=== PATIENT | female | born 1945 | race Caucasian/White ===

== ENCOUNTER → 2017-01-27 | Outpatient (CLI) | payer OTHER ==
[2017-01-27 13:47] LABS: ALBUMIN 3.1 gm/dl (3.1-4.5); CREATININE 1.1 mg/dL (0.55-1.02); POTASSIUM 3.3 mmol/L (3.5-5.1); TOTAL PROTEIN 7.7 gm/dL (6.4-8.2)
[2017-01-27 13:56] LABS: THYROID STIM HORMONE (HS) 1.62 uIU/ml (0.358-4.75)
== END | disposition home or self-care (01) ==
LOC: LAB 12:40
PROVIDERS: Internal Medicine
DX: E11.9 Type 2 diabetes mellitus without complications (principal); I25.10 Atherosclerotic heart disease of native coronary artery without angina pectoris; E78.00 Pure hypercholesterolemia, unspecified; E55.9 Vitamin D deficiency, unspecified

== ENCOUNTER → 2017-02-07 | Outpatient (CLI) | payer OTHER | END | disposition home or self-care (01) | LOC: US 12:56 | DX: N61.1 Abscess of the breast and nipple (principal) ==

== ENCOUNTER → 2017-03-10 | Outpatient (CLI) | payer OTHER ==
[2017-03-10 12:58] LABS: ALBUMIN 3.5 gm/dl (3.1-4.5); CREATININE 3.56 mg/dL (0.55-1.02); PHOSPHOROUS 6.7 mg/dL (2.5-4.9); POTASSIUM 4.5 mmol/L (3.5-5.1)
== END | disposition home or self-care (01) ==
LOC: LAB 11:57
PROVIDERS: Internal Medicine Nephrology
DX: N18.5 Chronic kidney disease, stage 5 (principal)

== ENCOUNTER → 2017-12-23 | Outpatient (CLI) | payer OTHER ==
[2017-12-23 12:13] LABS: BASO % 0.6 % (0.0-1.0); EOS # 0.2 10*3/uL (0.0-0.4); EOS % 2.9 % (1.0-4.0); HEMATOCRIT 31.8 % (37.0-47.0); HEMOGLOBIN 10.5 g/dl (12.0-16.0); LYMPH # 1.2 10*3/uL (1.3-4.4); LYMPH % 23.2 % (27.0-41.0); MEAN CELL VOLUME 91.6 fl (81.0-99.0); MEAN CORPUSCULAR HGB 30.3 pg (27.0-31.0); MEAN PLATELET VOLUME 10.1 fl (9.6-12.3); MONO # 0.4 10*3/uL (0.1-1.0); MONO % 7.8 % (3.0-9.0); NEUT # 3.3 10*3/uL (2.3-7.9); NEUT % 65.3 % (47.0-73.0); PLATELET COUNT AUTOMATED 186 10*3/uL (130-400); RED BLOOD COUNT 3.47 10*6/uL (4.10-5.10); RED CELL DISTRI WIDTH 14.8 % (0-14.5); WHITE BLOOD COUNT 5.1 10*3/uL (4.8-10.8)
[2017-12-23 12:42] LABS: ALBUMIN 3.7 gm/dl (3.1-4.5); CREATININE 3.77 mg/dL (0.55-1.02); PHOSPHOROUS 4.5 mg/dL (2.5-4.9); POTASSIUM 4.8 mmol/L (3.5-5.1)
[2017-12-23 12:46] LABS: COLOR YELLOW (YELLOW)
[2017-12-23 12:47] LABS: BACTERIA 3+; BILIRUBIN NEGATIVE (NEGATIVE); BLOOD NEGATIVE (NEGATIVE); CLARITY CLOUDY (CLEAR); EPITHELIAL CELLS 30-40; GLUCOSE NEGATIVE (NEGATIVE); KETONE NEGATIVE (NEGATIVE); LEUKO ESTERASE 2+ (NEGATIVE); NITRITE NEGATIVE (NEGATIVE); UROBILINOGEN 0.2 E.U./dl (0.2-1.0); WBC TNTC wbc/hpf (0-5)
[2017-12-23 13:50] LABS: FERRITIN 740.3 ng/mL (10.0-291.0); VITAMIN D, 25-HYDROXY 30.4 ng/mL (30-100)
[2017-12-23 13:51] LABS: PTH INTACT 495.7 pg/mL (18.5-88.0)
== END | disposition home or self-care (01) ==
LOC: LAB 11:25
PROVIDERS: Internal Medicine Nephrology
DX: N18.4 Chronic kidney disease, stage 4 (severe) (principal)

== ENCOUNTER → 2018-08-04 | Outpatient (CLI) | payer OTHER ==
[~2018-08-04] MED LIST: APRESOLINE10 MG PO; BIOTIN1000 MC1 PO; CALPHRON667 MG PO; CLARITIN10 MG PO; COREG3.125 MG PO; FUROSEMIDE80 MG PO; IRON325 M1 PO; OMNICEF300 MG PO; PRAVACHOL40 MG PO; PROTONIX40 MG PO; SODIUM BICARBO650 MG PO; TYLENOL325 M1 PO; VITAMIN D50000 UNIT PO; WARFARIN SOD5 MG PO; ZESTORETIC 20-1 EACH PO
[2018-08-04 11:35] LABS: BASO % 0.6 % (0.0-1.0); BILIRUBIN NEGATIVE (NEGATIVE); BLOOD NEGATIVE (NEGATIVE); CLARITY SL CLOUDY (CLEAR); COLOR YELLOW (YELLOW); EOS # 0.3 10*3/uL (0.0-0.4); EOS % 4.8 % (1.0-4.0); GLUCOSE NEGATIVE (NEGATIVE); HEMATOCRIT 25.3 % (37.0-47.0); HEMOGLOBIN 7.9 g/dl (12.0-16.0); KETONE NEGATIVE (NEGATIVE); LEUKO ESTERASE TRACE (NEGATIVE); LYMPH # 1.3 10*3/uL (1.3-4.4); LYMPH % 24.6 % (27.0-41.0); MEAN CORPUSCULAR HGB 31.2 pg (27.0-31.0); MEAN CORPUSCULAR HGB CONC 31.2 g/dl (33.0-37.0); MEAN PLATELET VOLUME 9.9 fl (9.6-12.3); MONO # 0.4 10*3/uL (0.1-1.0); MONO % 7.8 % (3.0-9.0); NEUT # 3.2 10*3/uL (2.3-7.9); NEUT % 61.8 % (47.0-73.0); NITRITE NEGATIVE (NEGATIVE); PLATELET COUNT AUTOMATED 226 10*3/uL (130-400); RED BLOOD COUNT 2.53 10*6/uL (4.10-5.10); RED CELL DISTRI WIDTH 13.9 % (0-14.5); UROBILINOGEN 0.2 E.U./dl (0.2-1.0); WHITE BLOOD COUNT 5.2 10*3/uL (4.8-10.8)
[2018-08-04 11:45] LABS: URINE CREATININE RANDOM 48.3 mg/dL
[2018-08-04 11:50] LABS: BACTERIA TRACE; EPITHELIAL CELLS 21-30; YEAST TRACE
[2018-08-04 11:53] LABS: ALBUMIN 3.8 gm/dl (3.1-4.5); CREATININE 4.23 mg/dL (0.55-1.02); PHOSPHOROUS 5.5 mg/dL (2.5-4.9); POTASSIUM 3.9 mmol/L (3.5-5.1)
[2018-08-04 12:53] LABS: FERRITIN 315.6 ng/mL (10.0-291.0); PTH INTACT 626.5 pg/mL (18.5-88.0)
== END | disposition home or self-care (01) ==
LOC: LAB 10:42
PROVIDERS: Internal Medicine Nephrology
DX: E11.22 Type 2 diabetes mellitus with diabetic chronic kidney disease (principal); N18.5 Chronic kidney disease, stage 5; D63.1 Anemia in chronic kidney disease; N25.81 Secondary hyperparathyroidism of renal origin; Z79.899 Other long term (current) drug therapy

== ENCOUNTER 2018-10-02 17:44 | Inpatient (IN) | payer OTHER ==
[~2018-10-02] VITALS: Ht 157.4 cm; Wt 80.7 kg
--- NOTE | ~2018-10-02 | PR ---
[place], [place] PROGRESS NOTE NAME: MARIELOS ESCALANTE UNIT #: [id number] ROOM: 404 DOCTOR: DAYNA MATHEWSMARIA ESTHER Maddox BIRTHDATE: [birth year] DOS: NEPHROLOGY FOLLOWUP NOTE SUBJECTIVE: The patient was seen and examined. She is awake, alert, and lying flat. She denies shortness of breath, nausea or vomiting. She continues to have pain in her legs. PHYSICAL EXAMINATION: VITAL SIGNS: Temperature 98.2, pulse 101, respiratory rate 18, blood pressure 113/56. HEENT: Shows no JVD. LUNGS: Fairly clear. HEART: S1, S2. No rub. ABDOMEN: Soft, nontender. EXTREMITIES: Had no edema. LABORATORY DATA: Hemoglobin 8.0, white count of 6.3, platelets 242. Sodium 134, potassium 4.8, CO2 of 16, BUN 156, creatinine 5.9, glucose 87, phosphorus 7.9, calcium 8.4, magnesium 1.3. ASSESSMENT AND PLAN: 1. Stage 5 chronic kidney disease with acute on chronic kidney disease. The patient has some improvement in her renal function, although marginal improvement in her GFR. She is receiving some gentle hydration and has had some improvement; however, I am still recommending dialysis. The patient will be seen by Dr. Maher tomorrow for she wanted to discuss with him prior to starting any dialysis plans, but does appear to be agreeable. She most likely will require tunneled dialysis catheter in the next 1-2 days by Interventional Radiology. Dialysis can be given while in the hospital. Most of her electrolyte abnormalities will be better controlled and improved with renal replacement therapy. She surprisingly is well compensated. 2. Anemia of chronic disease. Stable H and H. She will require erythropoietin stimulating agents. Would check iron studies. Most likely, she will need IV iron. 3. Lower extremity pain. The etiology is not clear. Continue supportive care. 4. Hyperphosphatemia. Phosphorus binders with meals. We will check an intact PTH level. 5. Metabolic acidosis. This is stable. We will correct with dialysis. 6. Hypomagnesemia, replace her magnesium. Start daily oral magnesium supplements for now. [place], [place] PROGRESS NOTE NAME: MARIELOS ESCALANTE UNIT #: [id number] ROOM: 404 DOCTOR: MARIA ESTHER MCINTOSH MD BIRTHDATE: [birth year] MARIA ESTHER MCINTOSH MD CM:PNTRANS [id number] MARIA ESTHER MCINTOSH MD 10/04/18 [id number] interface
--- NOTE | ~2018-10-02 | CON ---
[place], [place] REPORT OF CONSULTATION NAME: MARIELOS ESCALANTE [facility] #: [id number] UNIT #: [id number] ROOM: 404 DOCTOR: MARIA ESTHER MCINTOSH MD BIRTHDATE: [birth year] DOS: 10/03/2018 NEPHROLOGY CONSULTATION REASON FOR CONSULTATION: Acute on chronic kidney disease/patient known to you. HISTORY OF PRESENT ILLNESS: This is a 73-year-old female. She is well known to my partner, Dr. Maher. She has known chronic kidney disease. The details are not clear, but it seems she had been on dialysis in the past for what sounds like almost a year. Apparently, she was somewhat noncompliant and dialysis eventually was stopped since she had a stable creatinine and a GFR around 15. She is being followed very closely by Dr. Maher. Most recent creatinine from few months ago was noted to be 4.2. However, she did have a very high BUN. She has not had any overt uremic symptoms and has been surprisingly well compensated. It seems she came to the hospital due to cramping in her lower extremities. She had routine labs done and showed her labs to be worse from baseline. She was started on some gentle hydration it seems. The patient has not had nausea, vomiting or weight loss. She denied fevers or chills. Her initial BUN was 176 with a creatinine of 7.4. She also had a fairly significant metabolic acidosis, CO2 of 14. Creatinine today showed slight improvement 7.1 with BUN still high at 182. The patient tells me she urinates "normal." Her hemoglobin noted today was to be 8.6. ALLERGIES: Listed IBUPROFEN. MEDICATIONS: Reviewed in the chart. PAST MEDICAL HISTORY: 1. Stage V chronic kidney disease with a history of dialysis dependence in the past. Apparently, the patient has been considering home options. 2. Hypertension. 3. Anemia. 4. Secondary hyperparathyroidism. 5. Diabetes mellitus. 6. Hyperlipidemia. 7. AV fistula creation. 8. Cholecystectomy. 9. Hysterectomy. FAMILY HISTORY: There is no reported history of chronic kidney disease, otherwise noncontributory. SOCIAL HISTORY: She has a previous history of tobacco abuse. No history of alcohol or illicit drugs. REVIEW OF SYSTEMS: As per HPI, otherwise a 10-point review of systems was reviewed and was negative. PHYSICAL EXAMINATION: VITAL SIGNS: Temperature afebrile, pulse 68, respiratory rate 20, blood [place], [place] REPORT OF CONSULTATION NAME: MARIELOS ESCALANTE UNIT #: [id number] ROOM: 404 DOCTOR: MARIA ESTHER MCINTOSH MD BIRTHDATE: [birth year] pressure 148/47. GENERAL: She is awake, alert, comfortable, in no acute distress. HEENT: Shows no JVD. Sclerae are anicteric. Mucous membranes somewhat dry. Pharynx is clear. NECK: Supple. Trachea midline. No neck lymphadenopathy or thyromegaly. LUNGS: Fairly clear. No crackles, wheezing, or rales. No tactile fremitus. She is not using accessory muscles of respiration. HEART: S1, S2. No rub. No thrill or gallop. ABDOMEN: Soft, nontender. There is no organomegaly or rigidity, rebound or guarding. There is no CVA tenderness. EXTREMITIES: With trace edema. There is no lower extremity lymphadenopathy. Distal pulses are present. SKIN: Showed overt rash. There was no petechia or purpura. Skin temperature is warm. NEUROLOGIC: She was awake. She was alert. She was following commands. Cranial nerves are intact. LABORATORY DATA: Hemoglobin 8.6, white count 7.9, platelets 253. Sodium 130, potassium 4.8, CO2 of 15, BUN 182, creatinine 7.1, glucose 97, phosphorus 9.7, calcium 8.1. ASSESSMENT AND PLAN: 1. Stage V chronic kidney disease with acute on chronic renal failure. The patient appears to have progression of her CKD and does not have any overt uremic symptoms. She previously had required dialysis. 2. Anemia of chronic disease. 3. Lower extremity pain with an unclear etiology. 4. Hyperphosphatemia. 5. Mild hyponatremia. 6. Metabolic acidosis. 7. Elevated liver function tests. PLAN: 1. Gentle hydration for now. 2. Replace electrolytes as needed. 3. The patient to need dialysis. I explained to her that it is not safe to be discharged with her current kidney function and I am recommending her to start hemodialysis. She apparently has desire to do home dialysis with PD. I stated that this certainly will be an option for her. She will require training and have to see a surgeon as an outpatient for PD catheter placement. I explained to her, I am recommending inpatient hemodialysis to transition to outpatient hemodialysis first to stabilize her situation and then plans with moving forward with PD can be obtained. 4. Can start a phosphorus binder. Would start Renvela with meals. 5. Her acidosis and electrolyte abnormalities will be controlled with hemodialysis. 6. Would dose meds for ESRD. 7. Would recommend placing a tunneled dialysis catheter on Friday by Interventional Radiology. The patient stated to me she would like to wait to talk to Dr. Maher on Friday prior to starting any dialysis plans. I did state to [place], [place] REPORT OF CONSULTATION NAME: MARIELOS ESCALANTE UNIT #: [id number] ROOM: 404 DOCTOR: DAYNA MATHEWS,MARIA ESTHER Maddox BIRTHDATE: [birth year] her that this would be acceptable since she does appear to be well compensated with surprisingly no overt uremic symptoms. 8. For her anemia, She will require erythropoietin stimulating agents. We will check iron studies and can begin IV iron if indicated. Thank you for this consultation. We will follow with you. MARIA ESTHER MCINTOSH MD CM:CONSTR:REPORT OF CONSULTATION 1428 10/04/18 0129 interface
[2018-10-02 17:45] VITALS: BP 138/87
[2018-10-02 18:23] LABS: BASO % 0.4 % (0.0-1.0); EOS # 0.2 10*3/uL (0.0-0.4); EOS % 2.6 % (1.0-4.0); HEMATOCRIT 26.2 % (37.0-47.0); HEMOGLOBIN 8.6 g/dl (12.0-16.0); LYMPH # 0.8 10*3/uL (1.3-4.4); MEAN CELL VOLUME 94.6 fl (81.0-99.0); MEAN CORPUSCULAR HGB CONC 32.8 g/dl (33.0-37.0); MEAN PLATELET VOLUME 10.3 fl (9.6-12.3); MONO # 0.5 10*3/uL (0.1-1.0); MONO % 6.9 % (3.0-9.0); NEUT % 78.6 % (47.0-73.0); PLATELET COUNT AUTOMATED 262 10*3/uL (130-400); RED BLOOD COUNT 2.77 10*6/uL (4.10-5.10); RED CELL DISTRI WIDTH 13.6 % (0-14.5); WHITE BLOOD COUNT 7.7 10*3/uL (4.8-10.8)
[2018-10-02 18:40] LABS: ALBUMIN 3.4 gm/dl (3.1-4.5); CREATININE 7.43 mg/dL (0.55-1.02); POTASSIUM 5.1 mmol/L (3.5-5.1); TOTAL PROTEIN 7.1 gm/dL (6.4-8.2)
--- NOTE | 2018-10-02 19:05 | NUR ---
NURSE TO NURSE REPORT GIVEN TO THIS RN.PT AWAITING ADMISSION.
--- NOTE | 2018-10-02 20:22 | NUR ---
MULTIPLE ATTEMPTS MADE BY THIS RN AND 2 OTHER RN'S FOR IV ACCESS.UNSUCCESSFUL AT THIS TIME.DR SALGADO IS AWARE.
--- NOTE | 2018-10-02 20:33 | NUR ---
PT HAS OLD FISTULA IN LEFT ARM THAT IS NO OPERATIONAL.DR COOK AND DR SALGADO AT BEDSIDE TO EVALUATE IV ACCESS FOR PT, PER BOTH MD VERBAL ORDER, IV ACCESS OBTAINED IN PT LEFT FOREARM WITH 22GAUGE ANGIOCATH BY THIS RN.IV HAS GOOD BLOOD RETURN AND FLUSHES WELL.
--- NOTE | 2018-10-02 20:40 | NUR ---
PT MEDICATED PER EMAR WITH NUBAIN IM LEFT UPPER THIGH.
[2018-10-02 20:53] VITALS: BP 137/50
--- NOTE | 2018-10-02 21:06 | NUR ---
PT RESTING IN BED WITH LIGHTS DIMMED FOR COMFORT.CALL ZAMAN IS WITHIN REACH.PT DENIES ANY NEEDS AT THIS TIME.
--- NOTE | 2018-10-02 22:15 | NUR ---
PT ASSISTED ON AND OFF BEDSIDE TOILET.
--- NOTE | 2018-10-02 22:30 | NUR ---
PT MEDICATED PER EMAR WITH HEPARIN.INFUSION OF NS INITIATED @ 125ML/HR.PHOTO TAKEN OF SCAB ON RIGHT BREAST, PT STATES WAS AND OLD ABSCESS.
--- NOTE | 2018-10-02 22:43 | NUR ---
PT REPOSITIONED IN BED.SECOND PHOTO TAKEN OF SCAB ON 3RD DIGIT OF LT HAND.
[2018-10-03] VITALS (8 sets, daily range): BP systolic 117–155; BP diastolic 43–78
--- NOTE | 2018-10-03 01:28 | NUR ---
PT C/O RT LEG PAIN AND UNABLE TO GET COMFORTABLE.PAIN 5/10.
--- NOTE | 2018-10-03 01:35 | NUR ---
PT MEDICATED WITH NORCO TABLET PER EMAR.[facility] CONTACTED FOR HOSPITAL BED.
--- NOTE | 2018-10-03 03:54 | NUR ---
PT C/O NAUSEA AND STATES SHE IS UNABLE TO SLEEP.
--- NOTE | 2018-10-03 03:58 | NUR ---
PT BLOOD GLUCOSE AT BEDSIDE 51.
--- NOTE | 2018-10-03 04:03 | NUR ---
THIS RN SPOKE WITH DR SALGADO, PER VERBAL ORDER FROM DR SALGADO, INFUSION OF D10W INITIATED @ 40ML/HR. AND PT MEDICATED WITH 4MG ZOFRAN IVP.
--- NOTE | 2018-10-03 04:54 | NUR ---
BEDSIDE GLUCOSE 82.PT REPORTS NAUSEA HAS SUBSIDED.PT ASSISTED ON AND OFF BEDSIDE TOILET.
--- NOTE | 2018-10-03 05:55 | NUR ---
PT REPORTS CONTINUED RIGHT LEG PAIN, REQUEST PAIN MEDICATION.
--- NOTE | 2018-10-03 06:14 | NUR ---
PT RESTING IN BED WITH EYES CLOSED.
--- NOTE | 2018-10-03 06:41 | NUR ---
PT NOW AWAKE AND REQUESTIN GPAIN MEDICATION FOR HER LEG.PT MEDICATED PER EMAR WITH PRN MORPHINE 2MG.
--- NOTE | 2018-10-03 06:48 | NUR ---
PT REFUSED MEDICATION OF PROTONIX.
--- NOTE | 2018-10-03 07:25 | NUR ---
REPORT RECEIVED AT 0710 FROM RENETTA LIRA. THIS PT IS AWAKE AND ALERT. SHE HAS BEEN GIVEN A BREAKFAST TRAY AT THIS TIME. SHE IS SITTING UP NOW,EATING. IV DEXTROSE 10% IS INFUSING NOW. HER COLOR IS FAIR,SKIN W/D. RESPIRATIONS ARE NON-LABORED. PT WILL BE ADMITTED,WAITING FOR INPT BED ASSIGNMENT. PT IS AWARE OF THIS. ALVIN LIRA
[2018-10-03 08:31] LABS: BASO % 0.1 % (0.0-1.0); EOS # 0.1 10*3/uL (0.0-0.4); EOS % 1.4 % (1.0-4.0); HEMATOCRIT 26.5 % (37.0-47.0); HEMOGLOBIN 8.6 g/dl (12.0-16.0); LYMPH # 0.7 10*3/uL (1.3-4.4); LYMPH % 8.9 % (27.0-41.0); MEAN CORPUSCULAR HGB 30.8 pg (27.0-31.0); MEAN CORPUSCULAR HGB CONC 32.5 g/dl (33.0-37.0); MEAN PLATELET VOLUME 10.2 fl (9.6-12.3); MONO # 0.6 10*3/uL (0.1-1.0); MONO % 6.9 % (3.0-9.0); NEUT # 6.5 10*3/uL (2.3-7.9); NEUT % 81.9 % (47.0-73.0); PLATELET COUNT AUTOMATED 253 10*3/uL (130-400); RED BLOOD COUNT 2.79 10*6/uL (4.10-5.10); RED CELL DISTRI WIDTH 13.6 % (0-14.5); WHITE BLOOD COUNT 7.9 10*3/uL (4.8-10.8)
[2018-10-03 09:03] LABS: INTERNATIONAL NORM RATIO 3.6 (2.0-3.5)
[2018-10-03 09:20] LABS: ALBUMIN 3.3 gm/dl (3.1-4.5); CREATININE 7.09 mg/dL (0.55-1.02); POTASSIUM 4.8 mmol/L (3.5-5.1); TOTAL PROTEIN 7.1 gm/dL (6.4-8.2)
[2018-10-03 09:26] LABS: THYROID STIM HORMONE (HS) 1.72 uIU/ml (0.358-4.75)
[2018-10-03 09:28] LABS: PHOSPHOROUS 9.7 mg/dL (2.5-4.9)
[2018-10-03 09:29] LABS: VITAMIN D, 25-HYDROXY 24.2 ng/mL (30-100)
--- NOTE | 2018-10-03 09:34 | NUR ---
DR MCINTOSH AND DR MADERA HAVE BOTH BEEN NOTIFIED OF CRITICAL HIGH PHOSPHORUS LEVEL. ALVIN LIRA
--- NOTE | 2018-10-03 13:05 | NUR ---
A 73, admitted to , under the services of АННА Patel DO with a diagnosis of ACUTE RENAL FAILURE. Chief complaint is RIGHT LEG PAIN. Patient arrived via bed from ER. Monitor applied. Initial assessment completed. Vital signs taken and recorded. АННА PATLE DO notified of admission to the unit. Orders received. See assessment for past medical history, medications and allergies. Patient and/or family oriented to unit. [facility]. Clothing/patient valuable form completed. BATSHEVA HURTADO
[2018-10-03] MEDS ORDERED: IRON325 M1 PO (13:19)
--- NOTE | 2018-10-03 13:20 | NUR ---
Pt has an area to rt breast were she states she had an "abscess" that ruptured at home days ago. States that a lot of drainage came out at that time. Area is currently flat and scabbed, no redness warmth or drainage noted at this time. See wound care for measurements.
--- NOTE | 2018-10-03 13:35 | NUR ---
DR. Herrera was in and examined pt.
[2018-10-03] MEDS ORDERED: APRESOLINE10 MG PO (13:37)
[2018-10-03] MEDS ORDERED: FUROSEMIDE80 MG PO (13:38)
[2018-10-03] MEDS ORDERED: ZESTORETIC 20-1 EACH PO (13:38)
[2018-10-03] MEDS ORDERED: WARFARIN SOD5 MG PO (13:38)
[2018-10-03] MEDS ORDERED: PRAVACHOL40 MG PO (13:39)
[2018-10-03] MEDS ORDERED: COREG3.125 MG PO (13:39)
[2018-10-03] MEDS ORDERED: PROTONIX40 MG PO (13:39)
[2018-10-03] MEDS ORDERED: CALPHRON667 MG PO (13:40)
--- NOTE | 2018-10-03 14:19 | NUR ---
Medicated with zofran iv per prn order for complaints of nausea. Pt states she had a small emesis.
--- NOTE | 2018-10-03 20:37 | NUR ---
NORCO 5-325 MG TABLET PULLED FROM [facility] FOR PT D/T COMPLAINTS OF PAIN. UPON OPENING PILL FROM WRAPPING, PT REFUSES MEDICATION-STATING THAT THE MEDICATION WILL MAKE HER SICK AND NAUSEOUS. PT OFFERED ZOFRAN BUT REFUSED TO TRY THE NORCO MEDICATION. MEDICATION WASTED WITH ANOTHER RN IN [facility]. PT REQUESTS MORPHINE BECAUSE SHE STATES THAT IT MANAGES HER PAIN BETTER. WILL PULL MEDICATION AND MEDICATE PT ACCORDING TO ORDERS ON EMAR. PT AWARE.
--- NOTE | 2018-10-03 20:50 | NUR ---
PT GIVEN MORPHINE AND ZOFRAN AT THIS TIME FOR COMPLAINTS OF RLE PAIN AND NAUSEA. WILL MONITOR FOR EFFECTIVENESS. PT STATES THAT SHE CANNOT TAKE ANY MORE PO MEDICATION AT THIS TIME. ALL VITALS WNL. ASSESSMENT COMPLETE REVEALING NO NEW ABNORMALITIES. RESPIRATIONS EASY AND UNLABORED ON ROOM AIR. WILL CONTINUE TO MONITOR. ALL SAFETY MEASURES IN PLACE, CALL LIGHT IN REACH.
--- NOTE | 2018-10-03 21:50 | NUR ---
MORPHINE AND ZOFRAN EFFECTIVE AT THIS TIME.
--- NOTE | 2018-10-03 22:30 | NUR ---
PT CONTINUES TO COMPLAIN OF PAIN TO RLE. DR COWAN NOTIFIES AND GIVES NEW ORDERS FOR FLEXIRIL 5 MG TID. PT MEDICATED, WILL MONITOR FOR EFFECTIVENESS. CALL LIGHT IN REACH.
--- NOTE | 2018-10-03 23:30 | NUR ---
FLEXIRIL EFFECTIVE. PT RESTING IN BED. NO S/S OF DISTRESS. RESPIRATIONS EASY. CALL LIGHT IN REACH.
--- NOTE | 2018-10-04 | NUR ---
PT SLEEPING IN BED, NO S/S OF DISTRESS. CALL LIGHT IN REACH.
--- NOTE | 2018-10-04 03:24 | NUR ---
PT GIVEN MORPHINE FOR COMPLAINTS OF RLE PAIN. PT REFUSES NORCO, STATING THAT IT WILL MAKE HER SICK. WILL MONITOR FOR EFFECTIVENESS. CALL LIGHT IN REACH. PT ENCOURAGED TO USE CALL LIGHT.
--- NOTE | 2018-10-04 04:24 | NUR ---
MORPHINE EFFECTIVE PER PT.
--- NOTE | 2018-10-04 05:00 | NUR ---
PT REFUSES AM DOSE OF PROTONIX PO, STATING THE PILL WILL "MAKE HER SICK".
--- NOTE | 2018-10-04 06:40 | NUR ---
PT AM BLOOD SUGAR IS 83. 120 CC OF APPLE JUICE GIVEN PER PT REQUEST. PT REFUSES TO EAT ANYTHING PO AT THIS TIME D/T FEAR THAT IT WILL MAKE HER NAUSEOUS. WILL CONTINUE TO MONITOR. CALL LIGHT IN REACH.
[2018-10-04 07:18] LABS: BASO % 0.3 % (0.0-1.0); EOS # 0.1 10*3/uL (0.0-0.4); EOS % 1.9 % (1.0-4.0); HEMATOCRIT 25.4 % (37.0-47.0); LYMPH # 0.6 10*3/uL (1.3-4.4); LYMPH % 8.8 % (27.0-41.0); MEAN CELL VOLUME 95.1 fl (81.0-99.0); MEAN CORPUSCULAR HGB CONC 31.5 g/dl (33.0-37.0); MEAN PLATELET VOLUME 10.4 fl (9.6-12.3); MONO # 0.6 10*3/uL (0.1-1.0); NEUT % 79.2 % (47.0-73.0); PLATELET COUNT AUTOMATED 242 10*3/uL (130-400); RED BLOOD COUNT 2.67 10*6/uL (4.10-5.10); RED CELL DISTRI WIDTH 13.8 % (0-14.5); WHITE BLOOD COUNT 6.3 10*3/uL (4.8-10.8)
[2018-10-04 07:43] LABS: CREATININE 5.94 mg/dL (0.55-1.02); PHOSPHOROUS 7.9 mg/dL (2.5-4.9); POTASSIUM 4.8 mmol/L (3.5-5.1)
[2018-10-04 07:56] LABS: INTERNATIONAL NORM RATIO 2.9 (2.0-3.5)
[2018-10-04 08:00] VITALS: BP 120/57
--- NOTE | 2018-10-04 08:05 | NUR ---
PT MEDICATED WITH IV MORPHINE AND FLEXERIL PO PER PRN ORDER FOR C/O SEVERE LEG CRAMPS. RATES PAIN 10/. WILL MONITOR EFFECTIVENESS. LEG PAIN/CRAMPS CHRONIC PER PT.
--- NOTE | 2018-10-04 08:14 | NUR ---
IN TO SEE PATIENT REGARDING PLAN OF CARE.
--- NOTE | 2018-10-04 08:45 | NUR ---
EARLIER MEDS RELIEVING PAIN/CRAMPING TO BLLE. WILL CONTINUE TO MONITOR.
[2018-10-04 12:00] VITALS: BP 113/56
--- NOTE | 2018-10-04 13:57 | NUR ---
IV MORPHINE GIVEN PER PRN ORDER FOR C/O BLLE PAIN/CRAMPING. LESS CRAMPING PER PT. RATES PAIN 08/31. WILL MONITOR EFFECTIVENESS.
--- NOTE | 2018-10-04 14:45 | NUR ---
MORPHINE RELIEVING PAIN PER PT. WILL CONTINUE TO MONITOR.
[2018-10-04 16:00] VITALS: BP 139/50
--- NOTE | 2018-10-04 17:05 | NUR ---
FLEXERIL GIVEN PER PRN ORER FOR C/O MUSCLE CRAMPS/SPASMS TO BLLE. WILL MONITOR EFFECTIVENESS.
--- NOTE | 2018-10-04 18:28 | NUR ---
Patient resting quietly with no c/o discomfort. Respirations easy and regular. Vital signs stable. No overt distress.
[2018-10-04 20:00] VITALS: BP 124/64
--- NOTE | 2018-10-04 20:06 | NUR ---
24 HR chart check completed.
[2018-10-05] VITALS: BP 143/31
[2018-10-05 04:00] VITALS: BP 134/62
[2018-10-05 07:22] LABS: BASO % 0.3 % (0.0-1.0); EOS # 0.1 10*3/uL (0.0-0.4); EOS % 1.6 % (1.0-4.0); HEMATOCRIT 26.4 % (37.0-47.0); HEMOGLOBIN 8.1 g/dl (12.0-16.0); LYMPH # 0.7 10*3/uL (1.3-4.4); MEAN CELL VOLUME 97.4 fl (81.0-99.0); MEAN CORPUSCULAR HGB 29.9 pg (27.0-31.0); MEAN CORPUSCULAR HGB CONC 30.7 g/dl (33.0-37.0); MEAN PLATELET VOLUME 9.9 fl (9.6-12.3); MONO # 0.7 10*3/uL (0.1-1.0); MONO % 8.8 % (3.0-9.0); NEUT % 79.6 % (47.0-73.0); PLATELET COUNT AUTOMATED 236 10*3/uL (130-400); RED BLOOD COUNT 2.71 10*6/uL (4.10-5.10); RED CELL DISTRI WIDTH 14.2 % (0-14.5); WHITE BLOOD COUNT 7.6 10*3/uL (4.8-10.8)
[2018-10-05] MEDS ORDERED: CLARITIN10 MG PO (07:23)
[2018-10-05 07:44] LABS: CREATININE 4.97 mg/dL (0.55-1.02); PHOSPHOROUS 5.8 mg/dL (2.5-4.9)
[2018-10-05 07:58] LABS: INTERNATIONAL NORM RATIO 1.8 (2.0-3.5)
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
[2018-10-05 08:34] VITALS: BP 116/62
--- NOTE | 2018-10-05 08:46 | NUR ---
Nursing screen received and chart reviewed. If patient demonstrates a decline in ADL or functional mobility then refer to Occupational Therapy. Thank you.Evan Dunham OTR/[place]
--- NOTE | 2018-10-05 09:00 | NUR ---
Pump Servicer in to talk to patient. Patient states lives at home with . There are few steps in the home. Physician: rashard cruz [facility]acy: [facility] Home health services: none Patient's level of ADLs: INDEPENDENT Patient has working utilities: all working DME: none Follow-up physician's appointment after d/c: will be made by hospitalist nurse director upon discharge Does patient want to access PORTAL?: no Discharge plan discussed with patient, patient lives at home with , she states she is independent in adls and ambulation, drives, patient states she will be going home when able and denies any home needs. SHAHANA VALLECILLO
--- NOTE | 2018-10-05 09:17 | NUR ---
Dr. Mendoza notified of wound care recommendations.
[2018-10-05 12:00] VITALS: BP 140/98
[2018-10-05 16:00] VITALS: BP 145/41
--- NOTE | 2018-10-05 16:31 | NUR ---
PHYSICAL THERAPY Nursing screen received and chart review complete. If patient declines in functional status please refer for physical therapy evaluation. Thank you. Gaby [place]es,PT,DPT
[2018-10-05 20:00] VITALS: BP 142/79
[2018-10-06] VITALS: BP 157/65
[2018-10-06 04:00] VITALS: BP 148/62
[2018-10-06 07:09] LABS: ALBUMIN 2.6 gm/dl (3.1-4.5); CREATININE 3.99 mg/dL (0.55-1.02); PHOSPHOROUS 4.9 mg/dL (2.5-4.9)
[2018-10-06 07:17] LABS: INTERNATIONAL NORM RATIO 1.5 (2.0-3.5)
[2018-10-06 08:00] VITALS: BP 124/64; BP 130/84
--- NOTE | 2018-10-06 08:02 | NUR ---
UPON INITIAL ASSESSMENT NOTED #22 ANGIOCATH WAS IN LFA BELOW THE LAVF. LAVF + FOR FAINT THRILL/BRUITT. REMOVED IV PER PT REQUEST. PT STATED "DR RAYA WILL BE SO MAD".
--- NOTE | 2018-10-06 08:26 | NUR ---
NOTIFIED DR JOHNSON OF DISCONTINUATION OF LFA IV AND PLACEMENT OF NEW #22 IN [place]. REQUESTED UPDATE ON PT PLAN OF CARE [facility] [place] [facility]
--- NOTE | 2018-10-06 08:36 | NUR ---
NOTIFIED DR PANG OF IV ACCESS CHANGED TO [place] AND NS INFUSING @ 70 ML/HR. PT TOLERATED WELL.REQUESTING UPDATE ON PT PLAN OF CARE REGARDING TRANSFER TO [facility] FOR VASCULAR TO VERIFY LAVF ACCESS.
--- NOTE | 2018-10-06 09:00 | NUR ---
case management visits with patient, patient denies any home needs at this time
--- NOTE | 2018-10-06 09:00 | NUR ---
IV started right UPPER ARM with # protective cath after 1 attempts. Site prepped with Chloroprep. Sterile dressing applied. Patient tolerated procedure well. IV infusing at 70 cc/hr. DIEGO KERN
--- NOTE | 2018-10-06 10:14 | NUR ---
Dr. Salas notified of wound care recommendations.
[2018-10-06 12:00] VITALS: BP 100/60
[2018-10-06 16:00] VITALS: BP 153/62
--- NOTE | 2018-10-06 18:01 | NUR ---
PT REFUSED D/C WOUND PHOTOS.
--- NOTE | 2018-10-06 18:26 | NUR ---
REPORT CALLED TO DYANA AT [facility]. [phone].
--- NOTE | 2018-10-06 19:38 | NUR ---
Discharge instructions reviewed with patient/family. Patient receptive and verbalizes understanding. Follow-up care arranged. Written instructions given to patient/family.TRANSFERRED [facility]IA [facility] WITH NS INFUSING AT 70 CC/HR TO [facility] FOR HIGHER LEVEL OF CARE. PIPER PEREZ
== END 2018-10-06 19:38 | disposition short-term general hospital (02) | DRG 640 ==
LOC: ED 17:44 → EDHOLD 19:10 → 4E 19:10
PROVIDERS: Internal Medicine; Nurse Practitioner Family; Student in an Organized Health Care Education/Training Program; ADMIT Internal Medicine
DX: E87.1 Hypo-osmolality and hyponatremia (principal); N17.0 Acute kidney failure with tubular necrosis; N18.6 End stage renal disease; I12.0 Hypertensive chronic kidney disease with stage 5 chronic kidney disease or end stage renal disease; N25.81 Secondary hyperparathyroidism of renal origin; E87.2 Acidosis; R25.2 Cramp and spasm; R00.0 Tachycardia, unspecified; R06.82 Tachypnea, not elsewhere classified; E83.42 Hypomagnesemia; I48.91 Unspecified atrial fibrillation; E78.5 Hyperlipidemia, unspecified; E11.22 Type 2 diabetes mellitus with diabetic chronic kidney disease; E83.39 Other disorders of phosphorus metabolism; D72.810 Lymphocytopenia; E87.8 Other disorders of electrolyte and fluid balance, not elsewhere classified; E66.09 Other obesity due to excess calories; S61.259A Open bite of unspecified finger without damage to nail, initial encounter; D63.8 Anemia in other chronic diseases classified elsewhere; M79.661 Pain in right lower leg; W64.XXXA Exposure to other animate mechanical forces, initial encounter; Y93.89 Activity, other specified; Y92.89 Other specified places as the place of occurrence of the external cause; Y99.8 Other external cause status; S21.001S Unspecified open wound of right breast, sequela; Z79.01 Long term (current) use of anticoagulants; Z88.6 Allergy status to analgesic agent; Z91.040 Latex allergy status; Z90.49 Acquired absence of other specified parts of digestive tract; Z90.710 Acquired absence of both cervix and uterus; Z87.891 Personal history of nicotine dependence; Z82.49 Family history of ischemic heart disease and other diseases of the circulatory system; Z79.899 Other long term (current) drug therapy; Z91.15 Patient's noncompliance with renal dialysis; Z68.32 Body mass index [BMI] 32.0-32.9, adult

== ENCOUNTER 2018-10-14 17:39 | Inpatient (IN) | payer OTHER ==
[~2018-10-14] VITALS: Ht 157.4 cm; Wt 80.4 kg
--- NOTE | ~2018-10-14 | PR ---
[place], [place] PROGRESS NOTE NAME: [facility]ALANTE [id number] UN[facility] #: [id number] ROOM: 426 DOCTOR: MARIA ESTHER MCINTOSH MD BIRTHDATE: [birth year] DOS: 10/17/2018 NEPHROLOGY FOLLOWUP NOTE SUBJECTIVE: The patient was seen and examined. She is awake, alert. She denied any complaints to me. Denied shortness of breath, fevers, chills or night sweats. She was on room air and appeared comfortable. PHYSICAL EXAMINATION: VITAL SIGNS: Temperature 98.9, pulse 78, respiratory rate 18, blood pressure 100/80. HEENT: Shows no JVD. LUNGS: Fairly clear. HEART: S1, S2. No rub. ABDOMEN: Soft, nontender. EXTREMITIES: Showed no edema. LABORATORY DATA: Hemoglobin 7.9, white count of 7.1, platelets 240. BUN 57, creatinine 2.4, sodium 135, potassium 4.1, CO2 of 20, phosphorus 2.9, albumin 2.2. ASSESSMENT AND PLAN: 1. 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 The patient has a stable renal function. Continue to monitor her labs while in the hospital. She does not require dialysis at this time. The patient has a recent PD catheter placed. She will begin training as an outpatient, assuming her renal function remains stable. 2. Peripheral vascular disease. There are plans for transfer to an outside facility for further evaluation. 3. Anemia. Would transfuse as needed. The patient will require erythropoietin stimulating agents. 4. Cellulitis, on antibiotics. MARIA ESTHER MCINTOSH MD CM:PNTRANS [id number] MARIA ESTHER MCINTOSH MD 10/17/18 2333 interface
--- NOTE | ~2018-10-14 | EKG ---
[place], [place] ELECTROCARDIOGRAM REPORT NAME: MARIELOS ESCALANTE UNIT #: [id number] ROOM: 426 DOCTOR: YURIDIA DRAFT REPORT BIRTHDATE: [birth year] [facility] Test Date: 2018-10-15 Test Time: 03:23:37 Pat Name: MARIELOS ESCALANTE Department: Room: 42 1 Gender: F Supervisor Twisting Department: : 1945 Requested By: EMILIA SALGADO Order Number: [id number] Reading MD: Ita Eric Measurements Intervals Mobile Rate: 89 P: -24 VT: 160 QRS: -25 QRSD: 84 T: 28 QT: 337 QTc: 410 Interpretive Statements Sinus rhythm Borderline left axis deviation Abnormal R-wave progression, early transition Baseline wander in lead(s) V1 Electronically Signed On 10-15-2018 6:30:25 PDT by Ita Eric CM:EKGRPT:ELECTROCARDIOGRAM REPORT [id number] EMILIA SHI DRAFT REPORT EMILIA SALGADO
--- NOTE | ~2018-10-14 | PR ---
[place], [place] PROGRESS NOTE NAME: MARIELOS ESCALANTE [facility] #: [id number] UNIT #: [id number] ROOM: 426 DOCTOR: DAYNA MATHEWS,MARIA ESTHER Maddox BIRTHDATE: [birth year] DOS: SUBJECTIVE: The patient was seen and examined. She is awake and alert. She denies shortness of breath, fevers, chills or night sweats. She denies nausea or vomiting. She is sitting in a chair and feels well. PHYSICAL EXAMINATION: VITAL SIGNS: Temperature 98.2, pulse 85, respiratory rate 20, blood pressure 127/40. HEENT: Shows no JVD. LUNGS: Diminished breath sounds with no wheeze. HEART: S1, S2. No rub. ABDOMEN: Soft, nontender. EXTREMITIES: Showed no edema. SKIN: Showed no rash. LABORATORY DATA: Hemoglobin 7.4, white count of 6.2, platelets 272. Sodium 135, potassium 4.4, CO2 of 21, BUN 53, creatinine 2.38, glucose 86, calcium 8.7. ASSESSMENT AND PLAN: 1. 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 The patient's renal function is stable. Continue to monitor labs while in the hospital. Replace electrolytes as needed. There is no need for dialysis at this time. She will begin peritoneal dialysis training as an outpatient when appropriate. 2. Peripheral vascular disease. Plans for transfer noted. Continue supportive care. 3. Anemia. We will transfuse as needed. She will require erythropoietin stimulating agents. 4. Cellulitis. The patient remains on antibiotics. MARIA ESTHER MCINTOSH MD CM:PNTRANS [id number] MARIA ESTHER MCINTOSH MD 10/18/18 2339 interface
--- NOTE | ~2018-10-14 | EKG ---
[place], [place] ELECTROCARDIOGRAM REPORT NAME: MARIELOS ESCALANTE UNIT #: [id number] ROOM: 426 DOCTOR: YURIDIA DRAFT REPORT BIRTHDATE: [birth year] [facility] Test Date: 2018-10-14 Test Time: 21:42:23 Pat Name: MARIELOS ESCALANTE Department: Room: 42 1 Gender: F Social Secretary: Alison Anguiano : 1945 Requested By: EMILIA SALGADO Order Number: [id number] Reading MD: Ita Eric Measurements Intervals [place] Rate: 94 P: -8 HI: 160 QRS: -29 QRSD: 86 T: 32 QT: 335 QTc: 419 Interpretive Statements Sinus rhythm Ventricular premature complex Abnormal R-wave progression, early transition Inferior infarct, old Baseline wander in lead(s) V1,V3 No previous ECG available for comparison Electronically Signed On 10-15-2018 6:28:10 PDT by Ita Eric CM:EKGRPT:ELECTROCARDIOGRAM REPORT [id number] EMILIA SHI DRAFT REPORT EMILIA SALGADO
--- NOTE | ~2018-10-14 | EKG ---
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 Ectopic Atrial rhythm Electronically Signed On 10-15-2018 6:30:10 PDT by Ita Eric CM:EKGRPT:ELECTROCARDIOGRAM REPORT [id number] EMILIA SHI DRAFT REPORT EMILIA SALGADO
[~2018-10-14 17:39] MED LIST changes: -BIOTIN1000 MC1 PO; -OMNICEF300 MG PO; -SODIUM BICARBO650 MG PO; -TYLENOL325 M1 PO; -VITAMIN D50000 UNIT PO
[2018-10-14 17:48] VITALS: BP 122/59
[2018-10-14 19:05] LABS: BASO % 0.2 % (0.0-1.0); EOS # 0.1 10*3/uL (0.0-0.4); EOS % 1.1 % (1.0-4.0); HEMATOCRIT 25.9 % (37.0-47.0); HEMOGLOBIN 7.9 g/dl (12.0-16.0); LYMPH # 0.4 10*3/uL (1.3-4.4); LYMPH % 6.2 % (27.0-41.0); MEAN CELL VOLUME 100.8 fl (81.0-99.0); MEAN CORPUSCULAR HGB 30.7 pg (27.0-31.0); MEAN CORPUSCULAR HGB CONC 30.5 g/dl (33.0-37.0); MEAN PLATELET VOLUME 9.7 fl (9.6-12.3); MONO # 0.6 10*3/uL (0.1-1.0); MONO % 9.4 % (3.0-9.0); NEUT # 5.5 10*3/uL (2.3-7.9); NEUT % 82.3 % (47.0-73.0); PLATELET COUNT AUTOMATED 272 10*3/uL (130-400); RED BLOOD COUNT 2.57 10*6/uL (4.10-5.10); RED CELL DISTRI WIDTH 14.6 % (0-14.5); WHITE BLOOD COUNT 6.6 10*3/uL (4.8-10.8)
[2018-10-14 19:16] LABS: ACT PARTIAL THROMBO TIME 25.9 SECONDS (20.0-32.1)
[2018-10-14 19:22] LABS: ALBUMIN 2.6 gm/dl (3.1-4.5); CREATININE 2.44 mg/dL (0.55-1.02); POTASSIUM 5.4 mmol/L (3.5-5.1); TOTAL PROTEIN 6.3 gm/dL (6.4-8.2)
[2018-10-14 20:55] VITALS: BP 156/70
[2018-10-14] MEDS ORDERED: BIOTIN1000 MC1 PO (21:33)
[2018-10-14] MEDS ORDERED: SODIUM BICARBO650 MG PO (21:38)
[2018-10-14] MEDS ORDERED: VITAMIN D50000 UNIT PO (21:45)
[2018-10-14] MEDS ORDERED: TYLENOL325 M1 PO (21:48)
[2018-10-15] VITALS: BP 150/68
[2018-10-15 01:03] LABS: CREATININE 2.45 mg/dL (0.55-1.02); POTASSIUM 5.1 mmol/L (3.5-5.1); TROPONIN I 0.042 ng/ml (<0.045)
[2018-10-15 03:38] LABS: INTERNATIONAL NORM RATIO 1.1 (2.0-3.5)
[2018-10-15 03:51] LABS: ALBUMIN 2.5 gm/dl (3.1-4.5); CREATININE 2.39 mg/dL (0.55-1.02); PHOSPHOROUS 2.3 mg/dL (2.5-4.9); POTASSIUM 4.5 mmol/L (3.5-5.1)
[2018-10-15 07:13] LABS: BASO % 0.2 % (0.0-1.0); EOS # 0.1 10*3/uL (0.0-0.4); EOS % 1.5 % (1.0-4.0); HEMATOCRIT 23.8 % (37.0-47.0); HEMOGLOBIN 7.2 g/dl (12.0-16.0); LYMPH # 0.6 10*3/uL (1.3-4.4); LYMPH % 9.2 % (27.0-41.0); MEAN CORPUSCULAR HGB 30.3 pg (27.0-31.0); MEAN CORPUSCULAR HGB CONC 30.3 g/dl (33.0-37.0); MEAN PLATELET VOLUME 9.8 fl (9.6-12.3); MONO # 0.8 10*3/uL (0.1-1.0); MONO % 12.1 % (3.0-9.0); NEUT # 4.7 10*3/uL (2.3-7.9); NEUT % 76.2 % (47.0-73.0); PLATELET COUNT AUTOMATED 250 10*3/uL (130-400); RED BLOOD COUNT 2.38 10*6/uL (4.10-5.10); RED CELL DISTRI WIDTH 14.7 % (0-14.5); WHITE BLOOD COUNT 6.2 10*3/uL (4.8-10.8)
[2018-10-15 08:00] VITALS: BP 152/64
[2018-10-15 10:26] LABS: BILIRUBIN NEGATIVE (NEGATIVE); BLOOD NEGATIVE (NEGATIVE); CLARITY SL CLOUDY (CLEAR); COLOR YELLOW (YELLOW); GLUCOSE NEGATIVE (NEGATIVE); KETONE NEGATIVE (NEGATIVE); LEUKO ESTERASE TRACE (NEGATIVE); NITRITE NEGATIVE (NEGATIVE); UROBILINOGEN 0.2 E.U./dl (0.2-1.0)
[2018-10-15 10:35] LABS: BACTERIA TRACE
[2018-10-15 12:00] VITALS: BP 145/50
[2018-10-15 16:00] VITALS: BP 120/62
[2018-10-15 20:00] VITALS: BP 114/48
[2018-10-16] VITALS: BP 142/50
[2018-10-16 08:00] VITALS: BP 147/56
[2018-10-16 12:00] VITALS: BP 102/60
[2018-10-16 16:00] VITALS: BP 110/72
[2018-10-16 20:00] VITALS: BP 118/70
[2018-10-17] VITALS: BP 110/68
[2018-10-17 06:51] LABS: ALBUMIN 2.2 gm/dl (3.1-4.5); CREATININE 2.42 mg/dL (0.55-1.02); PHOSPHOROUS 2.9 mg/dL (2.5-4.9); POTASSIUM 4.1 mmol/L (3.5-5.1)
[2018-10-17 07:03] LABS: BASO % 0.4 % (0.0-1.0); EOS # 0.1 10*3/uL (0.0-0.4); HEMATOCRIT 25.5 % (37.0-47.0); HEMOGLOBIN 7.9 g/dl (12.0-16.0); LYMPH % 14.4 % (27.0-41.0); MEAN CELL VOLUME 97.7 fl (81.0-99.0); MEAN CORPUSCULAR HGB 30.3 pg (27.0-31.0); MEAN PLATELET VOLUME 10.6 fl (9.6-12.3); MONO # 0.8 10*3/uL (0.1-1.0); MONO % 11.8 % (3.0-9.0); NEUT # 4.9 10*3/uL (2.3-7.9); NEUT % 69.3 % (47.0-73.0); PLATELET COUNT AUTOMATED 240 10*3/uL (130-400); RED BLOOD COUNT 2.61 10*6/uL (4.10-5.10); RED CELL DISTRI WIDTH 14.5 % (0-14.5); WHITE BLOOD COUNT 7.1 10*3/uL (4.8-10.8)
[2018-10-17 08:54] VITALS: BP 112/76
[2018-10-17 11:47] VITALS: BP 100/80
[2018-10-17 16:56] VITALS: BP 98/40
[2018-10-17 20:00] VITALS: BP 108/78
[2018-10-18] VITALS: BP 122/82
[2018-10-18 07:19] LABS: HEMATOCRIT 24.2 % (37.0-47.0); HEMOGLOBIN 7.4 g/dl (12.0-16.0); MEAN CELL VOLUME 97.6 fl (81.0-99.0); MEAN CORPUSCULAR HGB 29.8 pg (27.0-31.0); MEAN CORPUSCULAR HGB CONC 30.6 g/dl (33.0-37.0); MEAN PLATELET VOLUME 10.4 fl (9.6-12.3); PLATELET COUNT AUTOMATED 272 10*3/uL (130-400); RED BLOOD COUNT 2.48 10*6/uL (4.10-5.10); RED CELL DISTRI WIDTH 14.5 % (0-14.5); WHITE BLOOD COUNT 6.2 10*3/uL (4.8-10.8)
[2018-10-18 07:24] LABS: CREATININE 2.38 mg/dL (0.55-1.02); POTASSIUM 4.4 mmol/L (3.5-5.1)
[2018-10-18 08:00] VITALS: BP 127/40
[2018-10-18 12:00] VITALS: BP 127/40
[2018-10-18 16:00] VITALS: BP 120/35
[2018-10-18 20:00] VITALS: BP 97/86
[2018-10-19] VITALS: BP 126/89
[2018-10-19] MEDS ORDERED: OMNICEF300 MG PO (07:04)
[2018-10-19 08:00] VITALS: BP 146/80
== END 2018-10-19 11:53 | disposition other institution (70) | DRG 602 ==
LOC: ED 17:39 → 4E 19:46 → EDHOLD 19:46 → ED 19:46 → EDHOLD 19:58 → 4E 20:39
PROVIDERS: Internal Medicine; Physician Assistant; Registered Nurse; Student in an Organized Health Care Education/Training Program; ADMIT Internal Medicine
DX: L03.115 Cellulitis of right lower limb (principal); E43 Unspecified severe protein-calorie malnutrition; N18.6 End stage renal disease; I12.0 Hypertensive chronic kidney disease with stage 5 chronic kidney disease or end stage renal disease; E11.52 Type 2 diabetes mellitus with diabetic peripheral angiopathy with gangrene; N17.9 Acute kidney failure, unspecified; I70.261 Atherosclerosis of native arteries of extremities with gangrene, right leg; I48.0 Paroxysmal atrial fibrillation; M94.0 Chondrocostal junction syndrome [Tietze]; R26.2 Difficulty in walking, not elsewhere classified; E11.22 Type 2 diabetes mellitus with diabetic chronic kidney disease; D53.9 Nutritional anemia, unspecified; E87.5 Hyperkalemia; D72.810 Lymphocytopenia; E87.8 Other disorders of electrolyte and fluid balance, not elsewhere classified; E66.09 Other obesity due to excess calories; E78.2 Mixed hyperlipidemia; E11.40 Type 2 diabetes mellitus with diabetic neuropathy, unspecified; E66.9 Obesity, unspecified; E11.621 Type 2 diabetes mellitus with foot ulcer; L97.529 Non-pressure chronic ulcer of other part of left foot with unspecified severity; L97.519 Non-pressure chronic ulcer of other part of right foot with unspecified severity; E55.9 Vitamin D deficiency, unspecified; W18.30XA Fall on same level, unspecified, initial encounter; Y92.098 Other place in other non-institutional residence as the place of occurrence of the external cause; S61.25 Open bite of finger without damage to nail; Y93.89 Activity, other specified; Y99.8 Other external cause status; Z88.6 Allergy status to analgesic agent; Z88.2 Allergy status to sulfonamides; Z91.09 Other allergy status, other than to drugs and biological substances; Z90.49 Acquired absence of other specified parts of digestive tract; Z90.710 Acquired absence of both cervix and uterus; Z87.891 Personal history of nicotine dependence; Z82.49 Family history of ischemic heart disease and other diseases of the circulatory system; Z79.899 Other long term (current) drug therapy; Z89.422 Acquired absence of other left toe(s); Z99.2 Dependence on renal dialysis; Z68.32 Body mass index [BMI] 32.0-32.9, adult